=== PATIENT | male | born 1950 | race Caucasian/White ===

== ENCOUNTER 2019-03-22 10:41 | Outpatient (CLI) | payer MEDICARE ==
--- NOTE | 2019-04-10 11:52 | Diagnostic Imaging Report ---
EVELIA HAYWARD [facility] [id number] [facility] [address] [address] Report Submission Date: Mar 22, 2019 2:50:56 PM CDT Patient Study Name: OVIDIO MAX Date: Mar 22, 2019 10:39:03 AM CDT Modality Type: DX Gender: M Description: C SPINE 2 OR 3 VIEWS : 54 Institution: [facility] Physician: EVELIA HAYWARD Exam: Cervical spine. History: Right-sided neck pain. AP, lateral and open-mouth odontoid view of the cervical spine are submitted. The vertebral body heights are adequately maintained. Disc space narrowing with endplate sclerosis and spurring throughout the cervical spine is noted. The bony elements of the neural canal and the odontoid process are intact. Prevertebral soft tissues are normal. Impression: Cervical spondylosis. Electronically signed on Mar 22, 2019 2:50:56 PM CDT by: Ap CHURCHILL
== END 2019-03-22 11:00 ==
LOC: RAD 10:41
PROVIDERS: ATTEND Family Medicine
DX: M47.812 Spondylosis without myelopathy or radiculopathy, cervical region (principal)
CPT/HCPCS: 72040

== ENCOUNTER 2019-04-22 12:01 | Outpatient (CLI) | payer MEDICARE | END 2019-04-22 12:06 | LOC: LAB 12:01 | PROVIDERS: ATTEND Family Medicine | DX: T14.8XXA Other injury of unspecified body region, initial encounter (principal); C44.519 Basal cell carcinoma of skin of other part of trunk; W57.XXXA Bitten or stung by nonvenomous insect and other nonvenomous arthropods, initial encounter | CPT/HCPCS: 36415; 86618; 86666; 86757 ==

== ENCOUNTER 2019-05-10 12:03 | Outpatient (CLI) | payer MEDICARE ==
[2019-05-10 12:18] LABS: BASOPHILS % 0.4 % (0.0-1.5); NEUTROPHILS # 5.8 # k/uL (1.4-7.7)
[2019-05-10 12:50] LABS: eGFR (Non-African) > 60
== END 2019-05-10 12:08 ==
LOC: LAB 12:03
PROVIDERS: ATTEND Family Medicine
DX: R03.0 Elevated blood-pressure reading, without diagnosis of hypertension (principal)
CPT/HCPCS: 36415; 80053; 85025